=== PATIENT | male | born 1975 | race Caucasian/White ===

== ENCOUNTER 2017-03-06 07:18 | Emergency (ER) | payer OTHER ==
[~2017-03-06] VITALS: Ht 177.8 cm; Wt 118.0 kg
[2017-03-06 07:19] VITALS: BP 188/114; PULSE 91; RESP 20; TEMP 97.7; O2SAT 100
[2017-03-06] MEDS ORDERED: KETOROLAC TROMETHAMINE 30 MG/ML (IVP) VIAL IVP ONE (07:45)
[2017-03-06] MEDS ORDERED: SODIUM CHLORIDE 0.9% FLUSH 10 ML FLUSH IV FLUSH PRN (07:45)
--- NOTE | 2017-03-06 07:52 | PD ---
HPI Chief Complaint: Flank/Kidney Pain Time Seen by Provider: 07:41 Travel History International Travel<30 days: No Contact w/Intl Traveler<30days: No Traveled to known affect area: No History of Present Illness HPI 41yo M with no significant PMH presents to the ED with c/o left flank pain that started at 5am today. States pain is constant, but waxes and wanes. Pain radiates to left back. Nothing seems to make it better or worst. Took alleve with little relieve. Denies any fever, chest pain, sob, n/v, hematuria, dysuria , testicular pain or penile discharge. PFSH Past Medical History Cardiovascular Problems: Yes High Cholesterol: Yes Diminished Hearing: No Hypertension: Yes Thyroid Disease: Yes Influenza Vaccination: No Social History Alcohol Use: Yes (Occasionally) Tobacco Use: No Substance Use: No Allergies-Medications (Allergen,Severity, Reaction): Coded Allergies: No Known Allergies (Unverified , 03/06/17) Reported Meds & Prescriptions Reported Meds & Active Scripts Active Percocet (Oxycodone-Acetaminophen) 5-325 mg Tab 1 Tab PO Q6H PRN Reported Lisinopril 20 Mg Tab 20 Mg PO DAILY [place] Thyroid (Thyroid) 60 Mg Tab 60 Mg PO DAILY Review of Systems Except as stated in HPI: all other systems reviewed are Neg Physical Exam Narrative GENERAL: 41yo M in moderate distress. SKIN: Focused skin assessment warm/dry. CARDIOVASCULAR: Regular rate and rhythm. No murmur appreciated. RESPIRATORY: No accessory muscle use. Clear to auscultation. Breath sounds equal bilaterally. GASTROINTESTINAL: Abdomen soft, +Left flank pain. No rebound tenderness or guarding. BACK: No midline ttp thoracic or lumbar spine. MUSCULOSKELETAL: No obvious deformities. No clubbing. No cyanosis. No edema. NEUROLOGICAL: Awake and alert. No obvious cranial nerve deficits. Motor grossly within normal limits. Normal speech. PSYCHIATRIC: Appropriate mood and affect; insight and judgment normal. Data Data Last Documented VS Vital Signs Date Time Temp Pulse Resp B/P (MAP) Pulse Ox O2 Delivery O2 Flow Rate FiO2 03/06/17 10:36 77 16 157/92 (113) 99 03/06/17 07:19 97.7 Room Air Orders Orders Complete Blood Count With Diff (03/06/17 07:45) Comprehensive Metabolic Panel (03/06/17 07:45) Lipase (03/06/17 07:45) Urinalysis - C+S If Indicated (03/06/17 07:45) Ct Abd/Pel W/O Iv Contrast (03/06/17 07:45) Iv Access Insert/Monitor (03/06/17 07:45) Ecg Monitoring (03/06/17 07:45) Oximetry (03/06/17 07:45) Sodium Chloride 0.9% Flush (Ns Flush) (03/06/17 07:45) Ketorolac Inj (Toradol Inj) (03/06/17 07:45) Morphine Inj (Morphine Inj) (03/06/17 08:45) Labs Laboratory Tests Test 03/06/17 07:54 03/06/17 08:13 White Blood Count 7.9 TH/MM3 Red Blood Count 5.34 MIL/MM3 Hemoglobin 16.3 GM/DL Hematocrit 46.6 % Mean Corpuscular Volume 87.2 FL Mean Corpuscular Hemoglobin 30.4 PG Mean Corpuscular Hemoglobin Concent 34.9 % Red Cell Distribution Width 13.4 % Platelet Count 239 TH/MM3 Mean Platelet Volume 8.1 FL Neutrophils (%) (Auto) 62.9 % Lymphocytes (%) (Auto) 26.4 % Monocytes (%) (Auto) 8.9 % Eosinophils (%) (Auto) 1.4 % Basophils (%) (Auto) 0.4 % Neutrophils # (Auto) 5.0 TH/MM3 Lymphocytes # (Auto) 2.1 TH/MM3 Monocytes # (Auto) 0.7 TH/MM3 Eosinophils # (Auto) 0.1 TH/MM3 Basophils # (Auto) 0.0 TH/MM3 CBC Comment DIFF FINAL Differential Comment Blood Urea Nitrogen 13 MG/DL Creatinine 1.35 MG/DL Random Glucose 111 MG/DL Total Protein 7.6 GM/DL Albumin 4.0 GM/DL Calcium Level 9.2 MG/DL Alkaline Phosphatase 56 U/L Aspartate Amino Transf (AST/SGOT) 49 U/L Alanine Aminotransferase (ALT/SGPT) 106 U/L Total Bilirubin 0.6 MG/DL Sodium Level 139 MEQ/L Potassium Level 3.9 MEQ/L Chloride Level 104 MEQ/L Carbon Dioxide Level 26.3 MEQ/L Anion Gap 9 MEQ/L Estimat Glomerular Filtration Rate 59 ML/MIN Lipase 124 U/L Urine Color YELLOW Urine Turbidity CLEAR Urine pH 5.5 Urine Specific [place] 1.019 Urine Protein TRACE mg/dL Urine Glucose (UA) NEG mg/dL Urine Ketones NEG mg/dL Urine Occult Blood MOD Urine Nitrite NEG Urine Bilirubin NEG Urine Urobilinogen LESS THAN 2.0 MG/DL Urine Leukocyte Esterase NEG Urine RBC 22 /hpf Urine WBC 1 /hpf Urine Mucus FEW /lpf Microscopic Urinalysis Comment CULT NOT INDICATED MDM Medical Decision Making Medical Screen Exam Complete: Yes Emergency Medical Condition: Yes Differential Diagnosis Nephrolithiasis vs. pyelonephritis vs. UTI Narrative Course 41yo M with sudden onset left flank pain, impression is nephrolithiasis. Labs reviewed, no leukocytosis. Creatinine mildly elevated at 1.35. LFT elevated but no ttp on right side. UA showed moderate occult blood. WBC 1. Culture not indicated. CT a/p showed 7x7 mm mild left ureteral calcified calculus with associated mild ot moderate left sided hydroureteronephrosis. Pt given toradol which helped with pain for a little but returned. Pt then given morphine and pain has completely resolved. Pt is tolerating PO and has no nausea or vomiting. I tried calling Dr. Farias but was informed that he is in a 3 hour robotic surgery. Discussed with pt and they do not want to wait and will follow up with him in his office. I will prescribe a few percocet for breakthrough pain. Strict return precautions given. Dr. Farias did call back and I discussed the case with him. He knows that pt will follow up with him in clinic. Diagnosis Primary Impression: Nephrolithiasis Referrals: Zan Farias MD call for appointment Left ureteral calculi 7mm by 7mm with mild to moderate hydroureteroneprhosis. Patient Instructions: General Instructions Departure Forms: Tests/Procedures Additional Instructions: Please call Dr. Farias's office today for follow up in his office today if possible. Return to the ED if symptoms worsen. Med/Other Pt SpecificInfo: Prescription(s) given Scripts Oxycodone-Acetaminophen (Percocet) 5-325 mg Tab 1 TAB PO Q6H Y for PAIN, #10 TAB 0 Refills Prov: GuyCatalina DO 03/06/17 Disposition: 01 DISCHARGE HOME Condition: Stable Catalina Guy DO Mar 06, 2017 07:52
[2017-03-06 08:06] LABS: BASOPHIL % 0.4 % (0.0-2.0); EOSINOPHIL # 0.1 TH/MM3 (0-0.4); EOSINOPHIL % 1.4 % (0.0-4.0); HEMATOCRIT 46.6 % (39.0-51.0); HEMO FLAGS DIFF FINAL; LYMPH % 26.4 % (9.0-44.0); LYMPHOCYTE # 2.1 TH/MM3 (1.0-4.8); MEAN CELL VOLUME 87.2 FL (80.0-100.0); MEAN CORPUSCULAR HEMOGLOBIN 30.4 PG (27.0-34.0); MEAN CORPUSCULAR HGB CONC 34.9 % (32.0-36.0); MONO % 8.9 % (0.0-8.0); NEUT % 62.9 % (16.0-70.0); PLATELET COUNT 239 TH/MM3 (150-450); RED BLOOD COUNT 5.34 MIL/MM3 (4.50-5.90); RED CELL DISTRIBUTION WIDTH 13.4 % (11.6-17.2); WHITE BLOOD COUNT 7.9 TH/MM3 (4.0-11.0)
[2017-03-06 08:22] LABS: ANION GAP 9 MEQ/L (5-15); AST (GOT) 49 U/L (15-37); BICARBONATE 26.3 MEQ/L (21.0-32.0); BLOOD UREA NITROGEN 13 MG/DL (7-18); CHLORIDE 104 MEQ/L (98-107); GLOMERULAR FILTRATION RATE 59 ML/MIN (>89); POTASSIUM 3.9 MEQ/L (3.5-5.1); SODIUM (NA) 139 MEQ/L (136-145)
[2017-03-06 08:24] LABS: BLOOD, URINE MOD (NEG); COMMENT (UR) CULT NOT INDICATED; CULTURE IF INDICATED CULT NOT INDICATED; GLUCOSE,URINE NEG (NEG); KETONE, URINE NEG (NEG); MUCUS URINE FEW /lpf (OCC); NITRITE,URINE NEG (NEG); PH, URINE 5.5 (5.0-8.5); URINE COLOR YELLOW (YELLW/STRAW)
[2017-03-06 08:24] LABS: ALKALINE PHOSPHATASE 56 U/L (45-117); ALT (GPT) 106 U/L (12-78); TOTAL BILIRUBIN ADULT 0.6 MG/DL (0.2-1.0)
--- NOTE | 2017-03-06 08:37 | RADRPT ---
EXAM DATE/TIME: 03/06/2017 08:17 [facility] COMPARISON: No previous studies available for comparison. INDICATIONS : Left flank pain. ORAL CONTRAST: No oral contrast ingested. RADIATION DOSE: 23.91 CTDIvol (mGy) MEDICAL HISTORY : Cardiovascular disease. Hypertension. SURGICAL HISTORY : None. ENCOUNTER: Initial : 1 day PAIN SCALE: 4/10 LOCATION: Left flank TECHNIQUE: Volumetric scanning of the abdomen and pelvis was performed. Using automated exposure control and ad justment of the mA and/or kV according to patient size, radiation dose was kept as low as reasonably achievable to obtain optimal diagnostic quality images. DICOM format image data is available electro nically for review and comparison. FINDINGS: LOWER LUNGS: The visualized lower lungs are clear. LIVER: Homogeneous density without lesion. There is no dilation of the biliary tree. No calcified gallston es. SPLEEN: Normal size without lesion. PANCREAS: Within normal limits. KIDNEYS: There is mild to moderate left-sided hydroureteronephrosis extending to a calcified ureteral calculus in the mid left ureter measuring 7 x 7 mm. There is also a nonobstructing 5 mm calyceal calculus in the inferior pole of the left kidney. On the right, there is a nonobstructing 3 mm calyceal calculus in the superior pole. Right kidney is otherwise unremarkable without hydronephrosis. ADRENAL GLANDS: Within normal limits. VASCULAR: There is no aortic aneurysm. BOWEL/MESENTERY: The stomach, small bowel, and colon demonstrate no acute abnormality. There is no free intraperitone al air or fluid. Appendix is visualized and normal in appearance. ABDOMINAL WALL: Within normal limits. RETROPERITONEUM: There is no lymphadenopathy. BLADDER: Decompressed. REPRODUCTIVE: Nonspecific prominence of the prostate gland containing coarse calcifications. INGUINAL: Small bilateral fat-containing hernias, right greater then left. MUSCULOSKELETAL: Within normal limits for patient age. CONCLUSION: 1. 7 x 7 mm mid left ureteral calcified calculus with associated mild to moderate left-sided hydroure teronephrosis. 2. Additional 5 mm nonobstructing calyceal calculus in the inferior pole of the left kidney and 3 mm calcified calyceal calculus in the superior pole of the right kidney. 3. Normal appendix. 4. Small bilateral fat-containing inguinal hernias, right greater than left. Sandoval Rome MD on March 06, 2017 at 8:29 Board Certified Radiologist. This report was verified electronically.
[2017-03-06] MEDS ORDERED: MORPHINE SULFATE 8 MG/ML INJ IV PUSH ONE (08:45)
[2017-03-06 09:47] VITALS: RESP 16
[2017-03-06] MEDS ORDERED: PERC5TAB12 PO (10:13)
[2017-03-06 10:36] VITALS: BP 157/92
[2017-03-06] MEDS ORDERED: ARMO60TA PO (10:36)
[2017-03-06] MEDS ORDERED: LISI-515 PO (10:36)
== END 2017-03-06 10:39 | disposition home or self-care (01) ==
LOC: NEPC 07:18
DX: N13.2 Hydronephrosis with renal and ureteral calculous obstruction (principal); I10 Essential (primary) hypertension; E78.00 Pure hypercholesterolemia, unspecified
CPT/HCPCS: 74176; 80053; 81001; 83690; 85025; 96374; 96375; 99285; J1885; J2270

== ENCOUNTER 2017-03-06 13:40 | Inpatient (IN) | payer OTHER ==
[~2017-03-06] VITALS: Ht 177.8 cm; Wt 118.0 kg
[~2017-03-06 13:40] MED LIST: ARMO60TA PO; LISI-515 PO; PERC5TAB12 PO
[2017-03-06 13:44] VITALS: BP 166/101; PULSE 79; RESP 17; TEMP 97.5; O2SAT 99
[2017-03-06] MEDS ORDERED: SODIUM CHLOR 0.9% 1000 ML INJ 1,000 ML IV SCH (16:37)
[2017-03-06] MEDS ORDERED: MORPHINE SULFATE 4 MG/ML INJ IV PUSH ONE (16:45)
[2017-03-06] MEDS ORDERED: KETOROLAC TROMETHAMINE 30 MG/ML (IVP) VIAL IVP ONE (16:45)
--- NOTE | 2017-03-06 17:04 | PD ---
HPI Chief Complaint: Flank/Kidney Pain Time Seen by Provider: 16:37 Travel History International Travel<30 days: No Contact w/Intl Traveler<30days: No Traveled to known affect area: No History of Present Illness HPI 41- year old male with a PMHx of HTN and hypothyroidism presents to the ED complaining of left flank pain. The patient reports that the pain started around 5 am this morning, and started in his groin and radiates to his back. The patient reports that he tried Aleve, but had minimal relief for his pain, which he currently rates as a 8/10. The patient reports no abdominal surgeries. The patient was recently seen this morning by Dr. Guy, and was diagnosed with a 7 mm kidney stone. The patient reports since being discharged from the hospital he has been unable to urinate. PFSH Past Medical History Cardiovascular Problems: Yes High Cholesterol: Yes Diminished Hearing: No Hypertension: Yes Thyroid Disease: Yes Social History Alcohol Use: Yes (Occasionally) Tobacco Use: No Substance Use: No Allergies-Medications (Allergen,Severity, Reaction): Coded Allergies: No Known Allergies (Unverified , 03/06/17) Reported Meds & Prescriptions Reported Meds & Active Scripts Active Percocet (Oxycodone-Acetaminophen) 5-325 mg Tab 1 Tab PO Q6H PRN Reported Lisinopril 20 Mg Tab 20 Mg PO DAILY [place] Thyroid (Thyroid) 60 Mg Tab 60 Mg PO DAILY Review of Systems General / Constitutional: No: Fever, Chills, Weight Gain, Weight Loss, Other Eyes: No: Diploplia, Blurred Vision, Photophobia, Drainage, Redness, Foreign Body Sensation, Pain, Tearing, Blind Spots, Visual changes, Blindness, Other HENT: No: Headaches, Vertigo, Lightheadedness, Sore Throat, Rhinitis, Rhinorrhea, Congestion, Nosebleed, Neck Stiffness, Neck Pain, Masses, Gingival Bleeding, Dental Difficulties, Ear Discharge, Earache, Other Cardiovascular: No: Chest Pain or Discomfort, Palpitations, Irregular Rhythm, Tachycardia, Diaphoresis, Syncope, Dyspnea on exertion, Varicosities, Edema, Cyanosis, Varicosities, Phlebitis, Claudication, Other Respiratory: No: Cough, Shortness of Breath, Wheezing, Sneezing, Orthopnea, Hemoptysis, Stridor, Night Sweats, Pleuritic Pain, Other Gastrointestinal: Positive: Abdominal Pain, No: Nausea, Vomiting, Diarrhea, Hematemesis, Hematochezia, Constipation, Changes in Bowel Habits, Indigestion, Dysphagia, Loss of Appetite, Other Genitourinary: Positive: Decreased Urinary Output, No: Urgency, Frequency, Dysuria, Nocturia, Hematuria, Oliguria, Hesitancy, Dribbling, Incontinence, Pelvic Pain, Flank Pain, Dyspareunia, Discharge, Dysmenorrhea, Menorrhagia, Metorrhagia, Vaginal Bleeding, Other Musculoskeletal: Positive: Pain (Left Flank pain ), No: Myalgias, Arthralgias, Limited ROM, Weakness, Cramping, Edema, Atrophy, Other Skin: No Rash, No Itching, No Dryness, No Lumps, No Hives, No Change in Pigmentation, No Change in nails, No Alopecia, No Lesions, No Breast Lumps, No Breast Tenderness, No Breast Swelling, No Other Neurologic: No: Weakness, Dizziness, Syncope, Focal Abnormalities, Coordination Problem, Tremor, Ataxia, Headache, Change in Mentation, Slurred Speech, Paresthesia, Incontinence, Seizures, Sensory Disturbance, Other Psychiatric: No: Anxiety, Depression, Suicidal Ideations, Disorder of Thought, Mood Disorder, Substance Abuse, Homicidal Ideation, Other Endocrine: No: Heat Intolerance, Cold Intolerance, Polyuria, Polydipsia, Other Hematologic/Lymphatic: No: Easy Bruising, Lymph Node Enlargement, Other Physical Exam Narrative GENERAL: SKIN: Warm and dry. HEAD: Atraumatic. Normocephalic. EYES: Pupils equal and round. No scleral icterus. No injection or drainage. ENT: No nasal bleeding or discharge. Mucous membranes pink and moist. NECK: Trachea midline. No JVD. CARDIOVASCULAR: Regular rate and rhythm. No S3, S4, or murmurs. RESPIRATORY: No accessory muscle use. Clear to auscultation. Breath sounds equal bilaterally. No wheezes, rales, or rhonchi. GASTROINTESTINAL: Positive CVA tenderness on left. Abdomen soft, non-tender, nondistended. Hepatic and splenic margins not palpable. MUSCULOSKELETAL: Extremities without clubbing, cyanosis, or edema. No obvious deformities. 2+ pulses bilaterally. NEUROLOGICAL: Awake and alert. No obvious cranial nerve deficits. Motor grossly within normal limits. Five out of 5 muscle strength in the arms and legs. Normal speech. PSYCHIATRIC: Appropriate mood and affect; insight and judgment normal. Data Data Last Documented VS Vital Signs Date Time Temp Pulse Resp B/P (MAP) Pulse Ox O2 Delivery O2 Flow Rate FiO2 03/06/17 13:44 97.5 79 17 166/101 (122) 99 Orders Orders Basic Metabolic Panel (Bmp) (03/06/17 16:37) Complete Blood Count With Diff (03/06/17 16:37) Iv Access Insert/Monitor (03/06/17 16:37) Ecg Monitoring (03/06/17 16:37) Morphine Inj (Morphine Inj) (03/06/17 16:45) Sodium Chlor 0.9% 1000 Ml Inj (Ns 1000 M (03/06/17 16:37) Ketorolac Inj (Toradol Inj) (03/06/17 16:45) Ondansetron Inj (Zofran Inj) (03/06/17 17:45) Admit Order (Ed Use Only) (03/06/17 17:52) Labs Laboratory Tests Test 03/06/17 16:57 White Blood Count 11.3 TH/MM3 Red Blood Count 5.38 MIL/MM3 Hemoglobin 16.0 GM/DL Hematocrit 47.2 % Mean Corpuscular Volume 87.7 FL Mean Corpuscular Hemoglobin 29.8 PG Mean Corpuscular Hemoglobin Concent 34.0 % Red Cell Distribution Width 13.4 % Platelet Count 235 TH/MM3 Mean Platelet Volume 8.3 FL Neutrophils (%) (Auto) 81.4 % Lymphocytes (%) (Auto) 11.9 % Monocytes (%) (Auto) 6.1 % Eosinophils (%) (Auto) 0.2 % Basophils (%) (Auto) 0.4 % Neutrophils # (Auto) 9.2 TH/MM3 Lymphocytes # (Auto) 1.4 TH/MM3 Monocytes # (Auto) 0.7 TH/MM3 Eosinophils # (Auto) 0.0 TH/MM3 Basophils # (Auto) 0.0 TH/MM3 CBC Comment DIFF FINAL Differential Comment Blood Urea Nitrogen 18 MG/DL Creatinine 1.60 MG/DL Random Glucose 113 MG/DL Calcium Level 9.4 MG/DL Sodium Level 136 MEQ/L Potassium Level 3.8 MEQ/L Chloride Level 102 MEQ/L Carbon Dioxide Level 26.9 MEQ/L Anion Gap 7 MEQ/L Estimat Glomerular Filtration Rate 48 ML/MIN MDM Medical Decision Making Medical Screen Exam Complete: Yes Emergency Medical Condition: Yes Medical Record Reviewed: Yes Interpretation(s) CBC & BMP Diagram 03/06/17 16:57 Calcium Level 9.4 Differential Diagnosis Pyelonephritis versus UTI versus Nephrolithiasis Narrative Course 41-year-old male that presents to the ED for evaluation of kidney pain. Patient was properly examined and was found to have signs and symptoms consistent appears to be kidney stone pain. Patient's a lot better even after being seen this morning. Cannot tolerate anything by mouth. Case was discussed with my attending Dr. Guy who actually evaluated this patient earlier today he recommends that I speak with urology. I spoke with Dr. Farias over the phone who agrees to admission for. Case discussed with Dr. Osullivan who agrees to admission. This was discussed with the family and patient's were in agreement with plan. Diagnosis Primary Impression: Kidney stone on left side Additional Impression: Intractable pain Admitting Information Admitting Physician Requests: Observation Eric Melendez Mar 06, 2017 17:04
[2017-03-06 17:29] LABS: AUTOMATED NEUTROPHIL # 9.2 TH/MM3 (1.8-7.7); BASOPHIL % 0.4 % (0.0-2.0); EOSINOPHIL % 0.2 % (0.0-4.0); HEMATOCRIT 47.2 % (39.0-51.0); HEMO FLAGS DIFF FINAL; LYMPH % 11.9 % (9.0-44.0); LYMPHOCYTE # 1.4 TH/MM3 (1.0-4.8); MEAN CELL VOLUME 87.7 FL (80.0-100.0); MEAN CORPUSCULAR HEMOGLOBIN 29.8 PG (27.0-34.0); MONO % 6.1 % (0.0-8.0); NEUT % 81.4 % (16.0-70.0); PLATELET COUNT 235 TH/MM3 (150-450); RED BLOOD COUNT 5.38 MIL/MM3 (4.50-5.90); RED CELL DISTRIBUTION WIDTH 13.4 % (11.6-17.2); WHITE BLOOD COUNT 11.3 TH/MM3 (4.0-11.0)
[2017-03-06] MEDS ORDERED: ONDANSETRON HCL 4 MG/2 ML VIAL IV PUSH ONE (17:45)
[2017-03-06 17:50] LABS: BICARBONATE 26.9 MEQ/L (21.0-32.0); POTASSIUM 3.8 MEQ/L (3.5-5.1)
[2017-03-06] MEDS ORDERED: ONDANSETRON HCL 4 MG/2 ML VIAL IV PUSH PRN (18:45)
[2017-03-06 19:25] VITALS: BP 159/94; PULSE 69; RESP 18; O2SAT 97
[2017-03-06] MEDS: SODIUM CHLOR 0.9% 1000 ML INJ 1,000 ML IV SCH (19:27)
[2017-03-06 20:30] VITALS: BP 158/94; PULSE 65; RESP 17; TEMP 96.9; O2SAT 98
[2017-03-06] MEDS: TAMSULOSIN HCL 0.4 MG CAP PO SCH (20:43)
[2017-03-07] VITALS: BP 131/86; PULSE 61; RESP 17; TEMP 96.2; O2SAT 98
--- NOTE | 2017-03-07 01:08 | HHI.HP ---
[facility] Non[facility]Staff Admission Diagnosis acute urethrolithiasis, failed outpatient treatment. Diagnoses: Travel History International Travel<30 Days: No Contact w/Intl Traveler <30 Da: No Traveled to Known Affected Are: No History of Present Illness pain at left lower quadrant with raidation to back since 5am no fever no nausea/ no vomiting no other symptoms Past Family Social History Past Medical History htn hypothyroidism Past Surgical History right knee meniscus Allergies: Coded Allergies: No Known Allergies (Unverified , 03/06/17) Family History none that he knows of Social History no smoking/ occasional drinking etoh/ no drugs Physical Exam Vital Signs Vital Signs Date Time Temp Pulse Resp B/P (MAP) Pulse Ox O2 Delivery O2 Flow Rate FiO2 03/06/17 20:30 96.9 65 17 158/94 (115) 98 03/06/17 20:04 03/06/17 19:25 69 18 159/94 (115) 97 Room Air 03/06/17 13:44 97.5 79 17 166/101 (122) 99 Physical Exam GENERAL: This is a well-nourished, well-developed patient, in no apparent distress. SKIN: No rashes, ecchymoses or lesions. Cool and dry. HEAD: Atraumatic. Normocephalic. No temporal or scalp tenderness. EYES: Pupils equal round and reactive. Extraocular motions intact. No scleral icterus. No injection or drainage. ENT: Nose without bleeding, purulent drainage or septal hematoma. Throat without erythema, tonsillar hypertrophy or exudate. Uvula midline. Airway patent. NECK: Trachea midline. No JVD or lymphadenopathy. Supple, nontender, no meningeal signs. CARDIOVASCULAR: Regular rate and rhythm without murmurs, gallops, or rubs. RESPIRATORY: Clear to auscultation. Breath sounds equal bilaterally. No wheezes , rales, or rhonchi. GASTROINTESTINAL: Abdomen soft, non-tender, nondistended. No hepato-splenomegaly , or palpable masses. No guarding. MUSCULOSKELETAL: Extremities without clubbing, cyanosis, or edema. No joint tenderness, effusion, or edema noted. No calf tenderness. Negative Homans sign bilaterally. NEUROLOGICAL: Awake and alert. Cranial nerves II through XII intact. Motor and sensory grossly within normal limits. Five out of 5 muscle strength in all muscle groups. Normal speech. Laboratory Laboratory Tests Test 03/06/17 16:57 White Blood Count 11.3 Red Blood Count 5.38 Hemoglobin 16.0 Hematocrit 47.2 Mean Corpuscular Volume 87.7 Mean Corpuscular Hemoglobin 29.8 Mean Corpuscular Hemoglobin Concent 34.0 Red Cell Distribution Width 13.4 Platelet Count 235 Mean Platelet Volume 8.3 Neutrophils (%) (Auto) 81.4 Lymphocytes (%) (Auto) 11.9 Monocytes (%) (Auto) 6.1 Eosinophils (%) (Auto) 0.2 Basophils (%) (Auto) 0.4 Neutrophils # (Auto) 9.2 Lymphocytes # (Auto) 1.4 Monocytes # (Auto) 0.7 Eosinophils # (Auto) 0.0 Basophils # (Auto) 0.0 CBC Comment DIFF FINAL Differential Comment Blood Urea Nitrogen 18 Creatinine 1.60 Random Glucose 113 Calcium Level 9.4 Sodium Level 136 Potassium Level 3.8 Chloride Level 102 Carbon Dioxide Level 26.9 Anion Gap 7 Estimat Glomerular Filtration Rate 48 Result Diagram: 03/06/17165603/06/171656 Caprini VTE Risk Assessment Caprini Risk Assessment Model Point Value = 1 Point Value = 2 Point Value = 3 Point Value = 5 Age 41-60 Minor surgery BMI > 25 kg/m2 Swollen legs Varicose veins or History of unexplained or recurrent spontaneous Oral contraceptives or hormone replacement Sepsis (< 1 month) Serious lung disease, including pneumonia (< 1 month) Abnormal pulmonary function Acute myocardial infarction Congestive heart failure (< 1 month) History of inflammatory bowel disease Medical patient at bed rest Age 61-74 Arthroscopic surgery Major open surgery (> 45 min) Laparoscopic surgery (> 45 min) Malignancy Confined to bed (> 72 hours) Immobilizing plaster cast Central venous access Age >= 75 History of VTE Family history of VTE Factor V Leiden Prothrombin [id number] Lupus anticoagulant Anticardiolipin antibodies Elevated serum homocysteine Heparin-induced thrombocytopenia Other congenital or acquired thrombophilia Stroke (< 1 month) Elective arthroplasty Hip, pelvis, or leg fracture Acute spinal cord injury (< 1 month) Prophylaxis Regimen Total Risk Factor Score Risk Level Prophylaxis Regimen 0-1 Low Early ambulation 2 Moderate Order ONE of the following: *Sequential Compression Device (SCD) *Heparin 5000 units SQ BID 3-4 Higher Order ONE of the following medications: *Heparin 5000 units SQ TID *Enoxaparin/Lovenox 40 mg SQ daily (WT < 150 kg, CrCl > 30 mL/min) *Enoxaparin/Lovenox 30 mg SQ daily (WT < 150 kg, CrCl > 10-29 mL/min) *Enoxaparin/Lovenox 30 mg SQ BID (WT < 150 kg, CrCl > 30 mL/min) AND/OR *Sequential Compression Device (SCD) 5 or more Highest Order ONE of the following medications: *Heparin 5000 units SQ TID (Preferred with Epidurals) *Enoxaparin/Lovenox 40 mg SQ daily (WT < 150 kg, CrCl > 30 mL/min) *Enoxaparin/Lovenox 30 mg SQ daily (WT < 150 kg, CrCl > 10-29 mL/min) *Enoxaparin/Lovenox 30 mg SQ BID (WT < 150 kg, CrCl > 30 mL/min) AND *Sequential Compression Device (SCD) Physician Certification Order for Inpatient Services The services are ordered in accordance with Medicare regulations or non- Medicare payer requirements, as applicable. In the case of services not specified as inpatient-only, they are appropriately provided as inpatient services in accordance with the 2-midnight benchmark. days is the estimated time the patient will need to remain in the hospital, assuming treatment plan goals are met and no additional complications. Anabela Adam MD Mar 07, 2017 01:08
[2017-03-07] MEDS ORDERED: MORPHINE SULFATE 4 MG/ML INJ IV PUSH PRN ×2 (03:00)
[2017-03-07 04:00] VITALS: BP 133/85; PULSE 86; RESP 17; TEMP 96.8; O2SAT 95
[2017-03-07] MEDS ORDERED: oxyCODONE/ACETAMINOPHEN 5 MG/325 MG TAB PO PRN ×2 (05:00)
[2017-03-07] MEDS: SODIUM CHLOR 0.9% 1000 ML INJ 1,000 ML IV SCH ×2 (05:33→16:39)
--- NOTE | 2017-03-07 06:56 | RADRPT ---
EXAM DATE/TIME: 03/07/2017 06:15 [facility] COMPARISON: No previous studies available for comparison. INDICATIONS : Renal calculi. Left side abdomen pain. MEDICAL HISTORY : Cardiovascular disease. Hypertension SURGICAL HISTORY : None. ENCOUNTER: Initial ACUITY: 2 days PAIN SCORE: 6/10 LOCATION: Left abdomen FINDINGS: Supine view of the abdomen was performed. The abdominal bowel gas pattern is nonspecific without marbella dence for obstruction. No free air. On the left side there is a calculus overlying the mid left urete r. CONCLUSION: 1. Calculus overlying expected location of the mid left ureter, unchanged from recent CT examination on March 06. Tl Wesley MD on March 07, 2017 at 6:54 Board Certified Radiologist. This report was verified electronically.
[2017-03-07 08:00] VITALS: BP 133/85; PULSE 86; RESP 16; TEMP 96.4; O2SAT 96
[2017-03-07 12:00] VITALS: BP 134/82; PULSE 91; RESP 18; TEMP 96.4; O2SAT 97
[2017-03-07] MEDS: TAMSULOSIN HCL 0.4 MG CAP PO SCH (12:05)
[2017-03-07] MEDS: LISINOPRIL 20 MG TAB PO SCH (12:05)
[2017-03-07] MEDS ORDERED: ACETAMINOPHEN/HYDROcodone 325 MG/7.5 MG TAB PO PRN (13:00)
--- NOTE | 2017-03-07 13:30 | MB ---
cc: ZAN GUZMAN MD DATE OF CONSULTATION: 03/07/2017 REASON FOR CONSULTATION 1. Left ureteral stone with hydronephrosis. 2. Left flank pain. HISTORY OF PRESENT ILLNESS The patient is a 41-year-old male with a history of hypertension who initially presented to the ER yesterday morning with acute onset of left flank pain, 10/10 in nature, described as sharp and stabbing. He had a CT of the abdomen and pelvis without contrast done which showed a 7 mm mid ureteral stone with hydronephrosis. He was given a dose of morphine and his pain subsided. He was then discharged home and told to follow-up with the on-call urologist. However, he started developing pain in his left lower quadrant radiating to his left back. He took a Percocet but then an hour later he was nauseated and Percocet did not touch the pain. He came back to the ER for further evaluation. He subsequently was admitted and urology was consulted. Currently his pain is 2/10. He has taken two doses of Percocet but has vomited right afterwards. He denies prior history of kidney stones. Denies dysuria, hematuria, fevers, chills at this time. Denies family history of kidney stones as well. ALLERGIES No known drug allergies. PAST MEDICAL HISTORY 1. Hypertension. 2. Hypothyroidism. PAST SURGICAL HISTORY Arthroscopic right knee surgery for meniscus. FAMILY HISTORY Denies urolithiasis or genitourinary malignancies. SOCIAL HISTORY Occasionally drinks alcohol. No smoking or drugs. Works at the [employer]. He is . MEDICATIONS Home medications are none. REVIEW OF SYSTEMS See HPI; all systems reviewed are otherwise negative. PHYSICAL EXAMINATION VITAL SIGNS: Temperature 96.4, pulse 86, respiratory rate 16, BP 130/85, satting 96% on room air. GENERAL: He is alert and oriented x3, in no apparent distress, pleasant, cooperative and appears his stated age. HEAD: Normocephalic, atraumatic. EYES: No scleral icterus. Extraocular muscles intact. SKIN: [place] and moist. No ulcers or rashes visible. LUNGS: Clear to auscultation bilaterally. No wheezes, rales or rhonchi. HEART: Regular rhythm. No murmurs, gallops or rubs. ABDOMEN: Soft, protuberant, nontender, nondistended. Positive bowel sounds. GENITOURINARY: He has no CVA test bilaterally. His penis is circumcised. Testes are descended bilaterally, normal size and consistency without mass. RECTAL: Not indicated at this time. EXTREMITIES: Nontender. No clubbing, cyanosis or edema. PSYCH: Normal affect. Slightly anxious. NEUROLOGIC: Cranial nerves II through XII intact. Strength 5/5 in all four extremities. LABORATORY Sodium 136, potassium 3.8, chloride 102, bicarb 26.9, BUN 18, creatinine 1.60, glucose 113, white count 11.3, hemoglobin 16.0, hematocrit 47.2, platelet count 235. IMAGING KUB images were reviewed. Agree with the radiologist's report. The patient has a left 7 mm mid ureteral stone. ASSESSMENT The patient is a 41-year-old male who presented to the ER with acute onset of left flank pain and was found to have an obstructing left 7 mm mid ureteral stone. PLAN Will recommend conservative management at this time. Will start him on Flomax and oral narcotics. Recommend increasing IV fluids and strain his urine. If he does well on oral medication for the rest of the day and overnight he then can be discharged in the morning and follow-up as an outpatient for treatment of the stone. However, if his pain persists or symptoms worsen he will then need an intervention during this admission. Though for this consult. Zan Guzman MD EMF/REYNALDO /12:51 PM /1:13 PM
[2017-03-07] MEDS ORDERED: ACETAMINOPHEN/HYDROcodone 325 MG/5 MG TAB PO PRN ×2 (14:00)
[2017-03-07 16:00] VITALS: BP 140/87; PULSE 81; RESP 17; TEMP 97.4; O2SAT 99
[2017-03-07] MEDS: IBUPROFEN 800 MG TAB PO SCH ×2 (16:38→21:07)
[2017-03-07 20:00] VITALS: BP 162/88; PULSE 78; RESP 18; TEMP 97.4; O2SAT 98
[2017-03-07 21:36] LABS: BICARBONATE 24.4 MEQ/L (21.0-32.0); POTASSIUM 3.5 MEQ/L (3.5-5.1)
[2017-03-08 00:38] VITALS: BP 135/80; PULSE 80; RESP 20; TEMP 96.7; O2SAT 98
[2017-03-08] MEDS: SODIUM CHLOR 0.9% 1000 ML INJ 1,000 ML IV SCH ×2 (00:45→12:05)
[2017-03-08 04:15] VITALS: BP 126/77; PULSE 72; RESP 20; TEMP 97.2; O2SAT 97
[2017-03-08] MEDS: IBUPROFEN 800 MG TAB PO SCH ×2 (05:16→14:13)
[2017-03-08 08:00] VITALS: BP 142/86; PULSE 72; RESP 18; TEMP 96.4; O2SAT 98
[2017-03-08 08:03] LABS: BICARBONATE 25.3 MEQ/L (21.0-32.0); POTASSIUM 3.9 MEQ/L (3.5-5.1)
[2017-03-08] MEDS: LISINOPRIL 20 MG TAB PO SCH (08:40)
[2017-03-08] MEDS: TAMSULOSIN HCL 0.4 MG CAP PO SCH (08:40)
--- NOTE | 2017-03-08 11:00 | HHI.PR ---
Subjective Remarks No pain currently. Feeling much better. Waiting to determine if urology can perform procedure for tomorrow. If he cannot and is rescheduled for next week he will prefer to be discharged home. Objective Vitals Vital Signs Date Time Temp Pulse Resp B/P (MAP) Pulse Ox O2 Delivery O2 Flow Rate FiO2 03/08/17 08:00 96.4 72 18 142/86 (104) 98 03/08/17 04:15 97.2 72 20 126/77 (93) 97 03/08/17 00:38 96.7 80 20 135/80 (98) 98 03/07/17 20:00 97.4 78 18 162/88 (112) 98 03/07/17 16:00 97.4 81 17 140/87 (104) 99 03/07/17 12:00 96.4 91 18 134/82 (99) 97 I/O 03/07/17 03/07/17 03/07/17 03/08/17 03/08/17 03/08/17 06:59 14:59 22:59 06:59 14:59 22:59 Intake Total 1120 ml 1180 ml Output Total 1000 ml 2200 ml 1000 ml Balance 120 ml -1020 ml -1000 ml Intake Oral 240 ml 1180 ml IV Total 880 ml Output Urine Total 1000 ml 2200 ml 1000 ml Result Diagram: 03/06/17 1657 03/08/17 0505 Other Results Imaging Last Impressions Abdomen X-Ray 03/07/17 0600 Signed Impressions: Service Date/Time: Tuesday, March 07, 2017 06:15 - CONCLUSION: 1. Calculus overlying expected location of the mid left ureter, unchanged from recent CT examination on March 06. Tl Wesley MD Objective Remarks GENERAL: This is a well-nourished, well-developed patient, in no apparent distress. CARDIOVASCULAR: Regular rate and rhythm RESPIRATORY: Clear to auscultation. Breath sounds equal bilaterally. No wheezes , rales, or rhonchi. GASTROINTESTINAL: Abdomen soft, non-tender, nondistended. Normal active bowel sounds MUSCULOSKELETAL: Extremities without clubbing, cyanosis, or edema. NEURO: Alert & Oriented x4 to person, place, time, situation. Moves all ext x4 A/P Problem List: (1) Obstructive uropathy ICD Code: N13.9 - Obstructive and reflux uropathy, unspecified Status: Acute (2) Acute renal injury ICD Code: N17.9 - Acute kidney failure, unspecified Status: Acute Assessment and Plan 1. Left obstructive uropathy/ hydronephrosis- IV fluid hydration Flomax, pain control. Patient pain has improved overnight. If no immediate intervention to be done, will discharge patient home today with follow with urology with pain medication and continued hydration. 2. Acute renal injury due to obstructive uropathy- IVF, creatinine mildly improved overnight. 3. DVT prophylaxis -low risk, Caprini score less than 1, no mechanical or pharmaceutical anticoagulation needed Discharge Planning Discharge patient to home if no surgical intervention planned Condition on discharge: Improved Regular Diet as tolerated Ad Connei activity Rx written: Byron,, Dar Follow-up with primary care physician Follow-up urology Inez Rodriguez MD Mar 08, 2017 11:00
[2017-03-08] MEDS ORDERED: TAMS5CAP PO (11:03)
--- NOTE | 2017-03-08 11:05 | HHI.DCPOC ---
Discharge Care Plan Diagnosis: (1) Obstructive uropathy (2) Kidney stone on left side Goals to Promote Your Health * To prevent worsening of your condition and complications * To maintain your health at the optimal level Directions to Meet Your Goals Take your medications as prescribed Follow your dietary instruction Follow activity as directed Keep your appointments as scheduled Take your immunizations and boosters as scheduled If your symptoms worsen call your PCP, if no PCP go to Urgent Care Center or Emergency Room Smoking is Dangerous to Your Health. Avoid second hand smoke Call the 24-hour hour crisis hotline for domestic abuse at Inez Musa MD Mar 08, 2017 11:05
[2017-03-08 12:00] VITALS: BP 153/84; PULSE 89; RESP 15; TEMP 96.9; O2SAT 99
--- NOTE | 2017-03-08 13:15 | HHI.PR ---
Subjective Patient symptoms today feels much better. has some pressure in left testicle. Denies N/V/F/C. Objective Vital Signs Vital Signs Date Time Temp Pulse Resp B/P (MAP) Pulse Ox O2 Delivery O2 Flow Rate FiO2 03/08/17 12:00 96.9 89 15 153/84 (107) 99 03/08/17 08:00 96.4 72 18 142/86 (104) 98 03/08/17 04:15 97.2 72 20 126/77 (93) 97 03/08/17 00:38 96.7 80 20 135/80 (98) 98 03/07/17 20:00 97.4 78 18 162/88 (112) 98 03/07/17 16:00 97.4 81 17 140/87 (104) 99 Intake & Output 03/08/17 03/08/17 07:00 19:00 Intake Total 480 ml 1000 ml Output Total 2000 ml Balance -1520 ml 1000 ml Intake Oral 480 ml IV Total 1000 ml Output Urine Total 2000 ml Result Diagram: 03/06/17 1865 03/08/17 5657 Objective Remarks NAD. abd soft, No CVAT. Medications and IVs Current Medications Medications (Trade) Dose Ordered Sig/Cynthia Route Start Time Stop Time Status Last Admin (Zofran Inj) 4 mg Q8HR PRN IV PUSH 03/06/17 18:45 03/07/17 09:42 Sodium Chloride 1,000 ml @ 100 mls/hr Q10H IV 03/06/17 18:45 03/08/17 12:05 (Flomax) 0.4 mg DAILY PO 03/06/17 20:00 03/08/17 08:40 (Prinivil) 20 mg DAILY PO 03/07/17 09:00 03/08/17 08:40 (Morphine Inj) 4 mg Q3H PRN IV PUSH 03/07/17 03:00 03/07/17 01:28 ([place] 5-325 Mg) 2 tab Q4H PRN PO 03/07/17 14:00 ([place] 5-325 Mg) 1 tab Q4H PRN PO 03/07/17 14:00 (Motrin) 800 mg Q8HR PO 03/07/17 14:00 03/07/17 21:07 Assessment and Plan Problem List: (1) Kidney stone on left side ICD Code: N20.0 - Calculus of kidney Status: Acute (2) Acute renal injury ICD Code: N17.9 - Acute kidney failure, unspecified Status: Acute (3) Obstructive uropathy ICD Code: N13.9 - Obstructive and reflux uropathy, unspecified Status: Acute Assessment and Plan KUB. Then ok to d/c home. If he has not passed stone, will schedule for surgery next Sunday as an outpatient. Scripts in chart. Zan Farias MD Mar 08, 2017 13:15
[2017-03-08] MEDS ORDERED: HYDR-3516 PO (13:17)
[2017-03-08] MEDS ORDERED: IBUP800T23 PO (13:17)
--- NOTE | 2017-03-08 13:53 | RADRPT ---
EXAM DATE/TIME: 03/08/2017 13:20 [facility] COMPARISON: CT ABDOMEN & PELVIS W/O CONTRAST, March 06, 2017, 8:17. ABDOMEN KUB ONLY, March 07, 2017, 6:15. INDICATIONS : Evaluate for calculi left side MEDICAL HISTORY : Cardiovascular disease. Hypertension SURGICAL HISTORY : None. ENCOUNTER: Subsequent ACUITY: 3 days PAIN SCORE: 0/10 LOCATION: Abdomen FINDINGS: The bowel gas is nonspecific. There are no signs of obstruction or free air for technique. No defini te calcified stones are identified for technique. Previously seen stone on the left side is not clear ly visualized CONCLUSION: Nonspecific abdomen and a previously seen stone on the left side is not clearly v isualized. Martinez To MD on March 08, 2017 at 13:46 Board Certified Radiologist. This report was verified electronically.
--- NOTE | 2017-03-08 13:53 | HHI.DS ---
Discharge Summary Admission Date Mar 06, 2017 at 18:34 Discharge Date: Mar 08, 2017 Admitting Diagnosis acute urethrolithiasis, failed outpatient treatment. (1) Obstructive uropathy ICD Code: N13.9 - Obstructive and reflux uropathy, unspecified Status: Acute (2) Acute renal injury ICD Code: N17.9 - Acute kidney failure, unspecified Diagnosis: Secondary Status: Acute Procedures none Brief History - From Admission 41-year-old white male was admitted for acute intractable flank pain and found to have left obstructive uropathy. He describes the pain in the left lower quadrant radiating to his neck with no associated nausea or vomiting. CBC/BMP: 03/06/17 1657 03/08/17 0505 Significant Findings Laboratory Tests Test 03/06/17 16:57 03/07/17 20:27 03/08/17 05:05 White Blood Count 11.3 TH/MM3 (4.0-11.0) Neutrophils (%) (Auto) 81.4 % (16.0-70.0) Neutrophils # (Auto) 9.2 TH/MM3 (1.8-7.7) Creatinine 1.60 MG/DL (0.60-1.30) 1.70 MG/DL (0.60-1.30) 1.41 MG/DL (0.60-1.30) Random Glucose 113 MG/DL (74-106) 119 MG/DL (74-106) Estimat Glomerular Filtration Rate 48 ML/MIN (>89) 45 ML/MIN (>89) 56 ML/MIN (>89) Blood Urea Nitrogen 20 MG/DL (7-18) Calcium Level 8.4 MG/DL (8.5-10.1) Chloride Level 108 MEQ/L (98-107) Imaging Last Impressions Abdomen X-Ray 03/07/17 0600 Signed Impressions: Service Date/Time: Tuesday, March 07, 2017 06:15 - CONCLUSION: 1. Calculus overlying expected location of the mid left ureter, unchanged from recent CT examination on March 06. Tl Wesley MD PE at Discharge GENERAL: This is a well-nourished, well-developed patient, in no apparent distress. CARDIOVASCULAR: Regular rate and rhythm RESPIRATORY: Clear to auscultation. Breath sounds equal bilaterally. No wheezes , rales, or rhonchi. GASTROINTESTINAL: Abdomen soft, non-tender, nondistended. Normal active bowel sounds MUSCULOSKELETAL: Extremities without clubbing, cyanosis, or edema. NEURO: Alert & Oriented x4 to person, place, time, situation. Moves all ext x4 Hospital Course 41-year-old white male presented with intractable left flank pain with radiation towards his back. He was found with left obstructive uropathy with hydronephrosis due to urolithiasis. He was seen by urologist Dr. Farias and due to improvement with IV fluid hydration, pain control and Flomax, patient will be discharged to home with outpatient surgical intervention next Sunday scheduled for March 13. KUB was ordered prior to discharge to home. Pt Condition on Discharge: Good Discharge Disposition: Discharge Home Discharge Time: <= 30 minutes Discharge Instructions DIET: Follow Instructions for: As Tolerated, No Restrictions Activities you can perform: Regular-No Restrictions Follow up Referrals: PCP Follow-up Urology with Zan Farias MD New Medications: Hydrocodone-Acetaminophen (Hydrocodone-Acetaminophen) 5-325 mg Tab 2 TAB PO Q4H PRN for PAIN SCALE 7 TO 10 for 7 Days, #30 TAB Ibuprofen (Ibuprofen) 800 Mg Tab 800 MG PO Q8HR for Pain Management for 7 Days, #21 TAB 0 Refills Tamsulosin (Flomax) 0.4 Mg Cap 0.4 MG PO DAILY for urine flow, #7 CAP Continued Medications: Lisinopril (Lisinopril) 20 Mg Tab 20 MG PO DAILY, #30 TAB 0 Refills Oxycodone-Acetaminophen (Percocet) 5-325 mg Tab 1 TAB PO Q6H PRN for PAIN, #10 TAB 0 Refills Thyroid ([place] Thyroid) 60 Mg Tab 60 MG PO DAILY for Thyroid Supplement, #30 TAB 0 Refills Inez Musa MD Mar 08, 2017 13:53
== END 2017-03-08 15:00 | disposition home or self-care (01) | DRG 694 ==
LOC: NEPC 13:40 → NEDA 17:54 → OBSVTOIN 18:34 → N07A 20:22
PROVIDERS: ADMIT Family Medicine; ATTEND Family Medicine
DX: N13.2 Hydronephrosis with renal and ureteral calculous obstruction (principal); N17.9 Acute kidney failure, unspecified; I10 Essential (primary) hypertension; E03.9 Hypothyroidism, unspecified; E78.00 Pure hypercholesterolemia, unspecified
CPT/HCPCS: 74000; 80048; 85025; 96374; 96375; J1885; J2270; J2405; J7030